=== PATIENT | male | born 1960 | race African-American/Black ===

== ENCOUNTER 2017-08-29 11:53 | Emergency (ER) | payer MEDICAID, OTHER ==
[~2017-08-29] VITALS: Ht 175.3 cm; Wt 97.5 kg
[~2017-08-29 11:53] MED LIST: ATENOLOL25 MG ORAL; NAPROXEN250 M1 PO; NKM; NORCO 5-325 TA1 EACH ORAL; PENICILLIN V P500 MG ORAL; TRAMADOL HCL50 MG ORAL
[2017-08-29 12:10] VITALS: BP 135/91
--- NOTE | 2017-08-29 12:34 | Emergency Room Report ---
History of Present Illness General Chief Complaint: Flu Like Symptoms Source: Patient Present Illness HPI 56-year-old male presents to the emergency department complaining of cough, nasal congestion, increased phlegm x1 week. Patient reports that 3 weeks ago he had similar symptoms that resolved however upon traveling to [place] his granddaughter was sick and he believes he may have become reinfected. He denies past medical history he denies taking medications regularly he states he works out daily and is relatively healthy otherwise. Denies high fevers, lethargy, neck stiffness, irritability, photophobia, swelling of the LE's, dehydration, N/V/D. Denies Cp, Palpitations, LOC, AMS, seizures, paresthesias, or changes in Hearing or vision, no Sudden severe MULLER Allergies: Coded Allergies: No Known Allergies (Unverified , 08/21/15) Patient History Past Medical History: see triage record Past Surgical History: none Pertinent Family History: none Immunizations: UTD Reviewed Nursing Documentation: PMH: Agreed, PSxH: Agreed Review of Systems All Other Systems: negative except mentioned in HPI Physical Exam Vital Signs Date Time Temp Pulse Resp B/P (MAP) Pulse Ox O2 Delivery O2 Flow Rate FiO2 08/29/17 12:00 98.8 67 20 135/91 100 Room Air Sp02 EP Interpretation: reviewed, normal General Appearance: no apparent distress, alert, GCS 15, non-toxic Head: normocephalic, atraumatic ENT: hearing grossly normal, normal voice Neck: full range of motion Respiratory: chest non-tender, lungs clear, normal breath sounds, speaking full sentences Cardiovascular #1: regular rate, rhythm, no edema Rectal: deferred Genitourinary: normal inspection Musculoskeletal: back normal, gait/station normal, normal range of motion, non- tender Neurologic: alert, oriented x3, responsive, motor strength/tone normal, sensory intact, speech normal, grossly normal Psychiatric: judgement/insight normal Skin: normal color, no rash, warm/dry, well hydrated Lymphatic: no adenopathy Medical Decision Making PA Attestation Dr. Murray is my supervising Physician whom patient management has been discussed with. Diagnostic Impression: Primary Impression: Upper respiratory infection, viral Additional Impression: Cough ER Course 56-year-old male presents to the emergency department complaining of cough, nasal congestion, increased phlegm x1 week. Patient reports that 3 weeks ago he had similar symptoms that resolved however upon traveling to [place] his granddaughter was sick and he believes he may have become reinfected. He denies past medical history he denies taking medications regularly he states he works out daily and is relatively healthy otherwise. Denies high fevers, lethargy, neck stiffness, irritability, photophobia, swelling of the LE's, dehydration, N/V/D. Denies Cp, Palpitations, LOC, AMS, seizures, paresthesias, or changes in Hearing or vision, no Sudden severe MULLER Ddx considered but are not limited to URI, pneumonia, PE, strep pharyngitis, meningitis. Vital signs: Pt. is afebrile, the remaining VS are WNL H&PE are most consistent with URI- no meningeal signs, oropharynx is not involved, no evidence of bacterial infection at this time. ORDERS: none required at this time, the diagnosis is clinical ED INTERVENTIONS: None required at this time. --PT. EDUCATION: Discussed antibiotic resistance with inappropriate prescribing of antibiotics for viral illnesses. Discussed signs and symptoms to indicate viral illness versus bacterial illness. DISCHARGE: At this time pt. is stable for d/c to home. Will provide printed patient care instructions, and any necessary prescriptions. Care plan and follow up instructions have been discussed with the patient prior to discharge. Last Vital Signs Date Time Temp Pulse Resp B/P (MAP) Pulse Ox O2 Delivery O2 Flow Rate FiO2 08/29/17 12:10 98.8 20 135/91 100 Room Air 08/29/17 12:10 67 Disposition: HOME, SELF-CARE Condition: Stable Scripts Codeine/Promethazine Hcl* (PROMETHAZINE-CODEINE SYRUP*) 118 Ml Syrup 5 ML ORAL Q6H Y for For Cough, #118 ML 0 Refills Prov: Karen Treviño P.A. 08/29/17 Acetaminophen* (TYLENOL EXTRA STRENGTH*) 500 Mg Tablet 500 MG ORAL Q6H, #20 TAB 0 Refills Prov: Karen Treviño P.A. 08/29/17 Albuterol Sulfate* (ALBUTEROL SULFATE MDI*) 8.5 Gm Hfa.aer.ad 2 PUFF INH Q4H, #1 INH 0 Refills Prov: Karen Treviño P.A. 08/29/17 Benzonatate* (TESSALON PERLE*) 100 Mg Capsule 100 MG ORAL THREE TIMES A DAY for 10 Days, #30 PERLE Prov: Karen Treviño 08/29/17 Guaifenesin (Guaifenesin) 1,200 Mg Tab.er.12h 1200 MG PO BID for 10 Days, #20 TAB Prov: Karen Treviño 08/29/17 Referrals: NOT CHOSEN IPA/MD,REFERRING (PCP) Patient Instructions: Upper Respiratory Infection, Adult, [id number] Additional Instructions: Take medications as directed: ------Use cough syrup at nighttime as this causes drowsiness, during the day he may use Tessalon Perles for your cough symptoms. Follow up with a Primary Care Provider in 3-5 days, even if your symptoms have resolved. --Please review list of primary care clinics, if you do not already have a primary care provider Return sooner to ED if new symptoms occur, or current symptoms become worse. Do not drink alcohol, drive, or operate heavy machinery while taking Cough Syrup as this may cause drowsiness. - Please note that this Emergency Department Report was dictated using [employer] administrator technology software, occasionally this can lead to erroneous entry secondary to interpretation by the dictation equipment. Karen Treviño Aug 29, 2017 12:34
[2017-08-29] MEDS ORDERED: GUAIFENESIN1200 MG PO (12:35)
[2017-08-29] MEDS ORDERED: PROMETHAZINE-C118 M1 ORAL (12:35)
[2017-08-29] MEDS ORDERED: TESSALON PERLE100 MG ORAL (12:35)
[2017-08-29] MEDS ORDERED: TYLENOL EXTRA500 MG ORAL (12:35)
[2017-08-29] MEDS ORDERED: ALBUTEROL SULF8.5 GM INH (12:35)
[2017-08-29 12:50] VITALS: BP 135/91
== END 2017-08-29 12:50 | disposition home or self-care (01) ==
LOC: EMR 12:10
DX: J06.9 Acute upper respiratory infection, unspecified (principal); B34.9 Viral infection, unspecified
CPT/HCPCS: 99283

== ENCOUNTER 2018-02-18 04:20 | Emergency (ER) | payer MEDICAID, OTHER ==
[~2018-02-18] VITALS: Ht 175.3 cm; Wt 97.5 kg
[~2018-02-18 04:20] MED LIST changes: +ALBUTEROL SULF8.5 GM INH; +GUAIFENESIN1200 MG PO; +PROMETHAZINE-C118 M1 ORAL; +TESSALON PERLE100 MG ORAL; +TYLENOL EXTRA500 MG ORAL
[2018-02-18 04:35] VITALS: BP 134/87
[2018-02-18] MEDS ORDERED: GABAPENTIN300 MG ORAL (04:57)
--- NOTE | 2018-02-18 04:57 | Emergency Room Report ---
History of Present Illness General Chief Complaint: General Complaint Source: Patient Present Illness HPI This is a 57-year-old male with no significant past medical history. He presents with bilateral hand pain and numbness. Has been ongoing for 2 years but getting worse. He said usually at night and felt numb and sleepy. No deficit. No trauma. Denies any other complaint. No fever or chills. Pain is 5 out of 10. Allergies: Coded Allergies: No Known Allergies (Unverified , 08/21/15) Patient History Past Medical History: see triage record, old chart reviewed Past Surgical History: none Pertinent Family History: none Social History: Denies: smoking Immunizations: other Reviewed Nursing Documentation: PMH: Agreed; PSxH: Agreed Nursing Documentation-PMH Past Medical History: No Stated History Review of Systems Eye: Denies: eye pain, blurred vision ENT: Denies: ear pain, nose congestion, throat swelling Respiratory: Denies: cough, shortness of breath Cardiovascular: Denies: chest pain, palpitations Gastrointestinal: Denies: abdominal pain, diarrhea, nausea, vomiting Musculoskeletal: Denies: back pain, joint pain Skin: Denies: rash Neurological: Denies: headache, numbness Endocrine: Denies: increased thirst, increased urine Hematologic/Lymphatic: Denies: easy bruising All Other Systems: negative except mentioned in HPI Physical Exam Vital Signs Date Time Temp Pulse Resp B/P (MAP) Pulse Ox O2 Delivery O2 Flow Rate FiO2 02/18/18 04:25 97.8 58 16 134/87 95 Room Air 97.9 vitals normal Sp02 EP Interpretation: reviewed, normal General Appearance: well appearing, no apparent distress, alert Head: normocephalic, atraumatic Eyes: bilateral eye PERRL, bilateral eye EOMI ENT: hearing grossly normal, normal pharynx Neck: full range of motion, supple, no meningismus Respiratory: chest non-tender, lungs clear, normal breath sounds Cardiovascular #1: regular rate, rhythm, no murmur Gastrointestinal: normal bowel sounds, non tender, no mass, no organomegaly, no bruit, non-distended Musculoskeletal: back normal, gait/station normal, normal range of motion, other - Exam of bilateral hands is normal to me. No deformity. Sensation normal. No pain over the median nerve. No evidence of infection. Neurologic: alert, oriented x3 Psychiatric: mood/affect normal Skin: warm/dry Medical Decision Making Diagnostic Impression: Primary Impression: Peripheral neuropathy Qualified Codes: G62.9 - Polyneuropathy, unspecified ER Course Patient with a neuropathy to his hands. This could be secondary to drugs, carpal tunnel syndrome, idiopathic to name a few. No evidence of any infection. No evidence of septic joint. We'll discharge home. Last Vital Signs Date Time Temp Pulse Resp B/P (MAP) Pulse Ox O2 Delivery O2 Flow Rate FiO2 02/18/18 04:43 97.9 02/18/18 04:35 58 16 134/87 95 Room Air Status: unchanged Disposition: HOME, SELF-CARE Condition: Stable Scripts Gabapentin* (GABAPENTIN*) 300 Mg Capsule 300 MG ORAL BEDTIME, #30 CAP Prov: ASCENCION ROBERTO M.D. 02/18/18 Referrals: NOT CHOSEN IPA/,REFERRING (PCP) Additional Instructions: Follow-up with your doctor in 7 days. Return if worse. ASCENCION ROBERTO M.D. Feb 18, 2018 04:57
[2018-02-18 05:07] VITALS: BP 134/87
== END 2018-02-18 05:07 | disposition home or self-care (01) ==
LOC: EMR 04:41
DX: G62.9 Polyneuropathy, unspecified (principal)
CPT/HCPCS: 99283

== ENCOUNTER 2019-07-08 16:36 | Emergency (ER) | payer OTHER ==
[~2019-07-08] VITALS: Ht 177.8 cm; Wt 99.8 kg
[~2019-07-08 16:36] MED LIST changes: +GABAPENTIN300 MG ORAL
--- NOTE | 2019-07-08 17:00 | NUR ---
ED Nurse Note: Patient walked into ED from home c/o left side headache 03/11, migraine like throbbing pain for about 4 months. patient is alert awake x4 ambulatory steady gait, breathing unlabored and even, speaking in full sentences. patient on a hospital gown, placed on a quality assurance monitor final.
--- NOTE | 2019-07-08 17:09 | Emergency Room Report ---
History of Present Illness General Chief Complaint: Headache Source: Patient Present Illness HPI Patient 58-year-old male presents after increased headache. Patient was having headache for several months. He denies taking any medications for his blood pressure. He reports of increased throbbing sensation to the left side of his head. He reports having taken Tylenol without improvement. He denies any fever or cough. Denies any vomiting. He reports having no visual changes. Allergies: Coded Allergies: No Known Allergies (Unverified , 08/21/15) Patient History Past Medical History: see triage record Reviewed Nursing Documentation: PMH: Agreed; PSxH: Agreed Nursing Documentation-PMH Past Medical History: No Stated History Review of Systems All Other Systems: negative except mentioned in HPI Physical Exam Vital Signs Date Time Temp Pulse Resp B/P (MAP) Pulse Ox O2 Delivery O2 Flow Rate FiO2 07/08/19 16:52 98.6 74 18 172/110 (130) 97 Room Air Sp02 EP Interpretation: reviewed, normal General Appearance: normal inspection, well appearing, no apparent distress, alert, GCS 15, non-toxic Head: atraumatic ENT: normal ENT inspection, hearing grossly normal, normal voice Neck: normal inspection, full range of motion, supple, no bony tend Respiratory: normal inspection, lungs clear, normal breath sounds, no respiratory distress, no retraction, no wheezing Cardiovascular #1: regular rate, rhythm, no edema Gastrointestinal: normal inspection, normal bowel sounds, non tender, soft, no guarding, no hernia Genitourinary: no CVA tenderness Musculoskeletal: normal inspection, back normal, normal range of motion Neurologic: alert, motor strength/tone normal, fish roe technician III-XII nml as tested, EOM palsy, oriented, DTRs symmetric, distal neuro normal, facial droop, oriented x3 , responsive, speech normal, normal inspection Psychiatric: normal inspection, judgement/insight normal, mood/affect normal Medical Decision Making Diagnostic Impression: Primary Impression: Hypertension Additional Impression: Headache ER Course Patient presents for increased headache. Differential diagnosis include was not limited to hypertension, intracranial hemorrhage, tumor, among others. Patient was noted to have normal neurologic exam. He appears to have some chronic headache which is been present for several months. CT imaging was ordered since patient has not had prior imaging in the past. He was given IV medications for pain. He was given IV magnesium for hypertension.Patient was also given IV hydralazine.Appears to be stable for outpatient management. The does not appear to be any evidence of meningismus. He was advised to follow-up with his primary care physician for recheck.He was given prescription for medications for symptom medic treatment as well as for Norvasc due to high blood pressure.The patient is advised to follow up with primary care doctor in 1-2 days. Patient is advised to return if any worsening condition or if any changes in status that are concerning. This report is dictated with [employer] sweatband cutting machine operator software which may occasionally lead to discrepancies related to use of this software. Labs Test 07/08/19 17:40 White Blood Count 7.9 K/UL (4.8-10.8) Red Blood Count 5.00 M/UL (4.70-6.10) Hemoglobin 14.1 G/DL (14.2-18.0) Hematocrit 41.1 % (42.0-52.0) Mean Corpuscular Volume 82 FL (80-99) Mean Corpuscular Hemoglobin 28.2 PG (27.0-31.0) Mean Corpuscular Hemoglobin Concent 34.3 G/DL (32.0-36.0) Red Cell Distribution Width 10.5 % (11.6-14.8) Platelet Count 228 K/UL (150-450) Mean Platelet Volume 6.7 FL (6.5-10.1) Neutrophils (%) (Auto) 58.5 % (45.0-75.0) Lymphocytes (%) (Auto) 30.0 % (20.0-45.0) Monocytes (%) (Auto) 7.1 % (1.0-10.0) Eosinophils (%) (Auto) 2.6 % (0.0-3.0) Basophils (%) (Auto) 1.8 % (0.0-2.0) Sodium Level 140 MMOL/L (136-145) Potassium Level 4.7 MMOL/L (3.5-5.1) Chloride Level 104 MMOL/L (98-107) Carbon Dioxide Level 34 MMOL/L (21-32) Anion Gap 2 mmol/L (5-15) Blood Urea Nitrogen 20 mg/dL (7-18) Creatinine 1.4 MG/DL (0.55-1.30) Estimat Glomerular Filtration Rate > 60 mL/min (>60) Glucose Level 103 MG/DL (74-106) Calcium Level 9.0 MG/DL (8.5-10.1) Last Vital Signs Date Time Temp Pulse Resp B/P (MAP) Pulse Ox O2 Delivery O2 Flow Rate FiO2 07/08/19 16:52 98.6 74 18 172/110 (130) 97 Room Air Status: improved Disposition: HOME, SELF-CARE Condition: Stable Scripts Acetamin/Butalbital/Caffeine* (FIORICET*) 1 Ea Tab 1 TAB ORAL Q6H, #15 TAB 0 Refills Prov: Zeus Middleton MD 07/08/19 Amlodipine Besylate (Norvasc) 5 Mg Tablet 5 MG ORAL DAILY, #30 TAB Prov: Zeus Middleton MD 07/08/19 Zeus Middleton MD Jul 08, 2019 17:09
[2019-07-08] MEDS ORDERED: Ketorolac 30mg Inj IV ONE (17:30)
[2019-07-08] MEDS ORDERED: Metoclopramide 10mg/2ml Inj IVP ONE (17:30)
[2019-07-08 18:05] LABS: BASOPHILS % (AUTO) 1.8 % (0.0-2.0); EOSINOPHILS % (AUTO) 2.6 % (0.0-3.0); HEMATOCRIT 41.1 % (42.0-52.0); HEMOGLOBIN 14.1 G/DL (14.2-18.0); MEAN CORPUSCULAR VOLUME 82 FL (80-99); MONOCYTES % (AUTO) 7.1 % (1.0-10.0); NEUTROPHILS % (AUTO) 58.5 % (45.0-75.0); PLATELET COUNT 228 K/UL (150-450); RED CELL DISTRIBUTION WIDTH 10.5 % (11.6-14.8); WHITE BLOOD COUNT 7.9 K/UL (4.8-10.8)
[2019-07-08 18:09] VITALS: BP 165/107
--- NOTE | 2019-07-08 18:20 | NUR ---
ED Nurse Note: medication given as ordered, patient tolerated without complication, patient on bed resting, watching his cell phone.
[2019-07-08 18:22] LABS: ANION GAP 2 mmol/L (5-15); BLOOD UREA NITROGEN 20 mg/dL (7-18); CARBON DIOXIDE 34 MMOL/L (21-32); CHLORIDE 104 MMOL/L (98-107); CREATININE 1.4 MG/DL (0.55-1.30); POTASSIUM 4.7 MMOL/L (3.5-5.1); SODIUM 140 MMOL/L (136-145)
[2019-07-08 18:26] LABS: ALANINE AMINOTRANSFERASE 30 U/L (12-78); ALBUMIN 4.2 G/DL (3.4-5.0); ALBUMIN/GLOBULIN RATIO 1.2 (1.0-2.7); ALKALINE PHOSPHATASE 45 U/L (46-116); ASPARTATE AMINO TRANSFERASE 30 U/L (15-37); BILIRUBIN,TOTAL 0.3 MG/DL (0.2-1.0)
[2019-07-08 18:40] LABS: APPEARANCE,URINE CLEAR; BILIRUBIN, URINE NEGATIVE (NEGATIVE); COLOR,URINE PALE YELLOW; GLUCOSE, URINE (UA) NEGATIVE (NEGATIVE); KETONES,URINE NEGATIVE (NEGATIVE); LEUKOCYTE ESTERASE ,URINE NEGATIVE (NEGATIVE); NITRITE,URINE NEGATIVE (NEGATIVE); PH,URINE 8 (4.5-8.0); PROTEIN,URINE NEGATIVE (NEGATIVE); UROBILINOGEN,URINE NORMAL MG/DL (0.0-1.0)
--- NOTE | 2019-07-08 18:59 | NUR ---
HAND-OFF: Report given to Albert BLAKELY.
--- NOTE | 2019-07-08 19:13 | Diagnostic Imaging Report ---
EXAM: CT Head Without Intravenous Contrast CLINICAL HISTORY: PAIN TECHNIQUE: Axial computed tomography images of the head/brain without intravenous contrast. CTDI is 60 mGy and DLP is 1244 mGy-cm. One or more of the following dose reduction techniques were used: automated exposure control, adjustment of the mA and/or kV according to patient size, use of iterative reconstruction technique. COMPARISON: 03/25/16 CT head FINDINGS: Brain: No hemorrhage or mass effect. Ventricles: No hydrocephalus. Bones/joints: Unremarkable. Soft tissues: Unremarkable. Sinuses: Unremarkable. Mastoid air cells: Clear. IMPRESSION: No acute hemorrhage, hydrocephalus, or mass effect.
[2019-07-08] MEDS ORDERED: NORVASC5 MG ORAL (19:17)
[2019-07-08] MEDS ORDERED: FIORICET1 EA ORAL (19:17)
[2019-07-08 19:54] VITALS: BP 168/99
--- NOTE | 2019-07-08 19:54 | NUR ---
ER DISCHARGE NOTE: Patient is cleared to be discharged per ERMD, pt is aox4, on room air, with stable vital signs. pt was given dc and prescription instructions, pt was able to verbalize understanding, pt id band and iv site removed without complications. pt is able to ambulate with steady gait. pt took all belongings. Pt will get picked up by familymember.
== END 2019-07-08 19:54 | disposition home or self-care (01) ==
LOC: EMR 17:14
DX: R51 Headache (principal); I10 Essential (primary) hypertension
CPT/HCPCS: 36415; 70450; 80053; 81003; 85025; 96365; 96375; J0360; J1885; J2765; Z7502; 99284